=== PATIENT | male | born 1950 | race Hispanic/Latino ===

== ENCOUNTER 2019-12-21 | Observation (INO) | payer OTHER | END 2019-12-23 16:30 | disposition home or self-care (01) | PROVIDERS: ADMIT Surgery Plastic and Reconstructive Surgery ==

== ENCOUNTER 2024-02-27 20:39 | Observation (INO) | payer OTHER ==
[~2024-02-27] VITALS: Ht 167.6 cm; Wt 72.5 kg
[2024-02-27] MEDS: LACTATED RINGERS 1000ML 1,000 ML IV ONE (21:36)
[2024-02-27 21:52] LABS: BASOPHILS # (AUTO) 0.04 K/uL (0.00-0.20); BASOPHILS % (AUTO) 0.4 % (0.0-5.0); EOSINOPHILS # (AUTO) 0.35 K/uL (0.00-0.70); EOSINOPHILS % (AUTO) 3.4 % (0.0-8.0); HEMATOCRIT 41.8 % (42-54); IMMATURE GRANULOCYTE ABSOLUTE 0.05 K/uL (0-1); LYMPHOCYTES # (AUTO) 1.8 K/uL (1.0-4.8); LYMPHOCYTES % (AUTO) 17.6 % (21.0-51.0); MEAN CORPUSCULAR HEMOGLOBIN 32.7 pg (27.0-33.0); MEAN CORPUSCULAR VOLUME 96.3 fL (79-99); MONOCYTES # (AUTO) 1.3 K/uL (0.1-1.0); MONOCYTES % (AUTO) 12.2 % (3.0-13.0); NEUTROPHILS # (AUTO) 6.9 K/uL (1.8-7.7); NEUTROPHILS % (AUTO) 65.9 % (40.0-77.0); PLATELET COUNT (AUTO) 186 K/uL (130-400); RED BLOOD CELL COUNT(AUTO) 4.34 MIL/uL (4.50-6.20); RED CELL DISTRIBUTION WIDTH 13.2 % (11.0-15.5); WHITE BLOOD COUNT (AUTO) 10.4 K/uL (4.8-10.8)
[2024-02-27 22:05] LABS: CREATININE 1.9 mg/dL (0.5-1.3); INR 1.02 (0.85-1.15); POTASSIUM 4.1 mmol/L (3.5-5.1)
[2024-02-27 22:17] LABS: B-TYPE NATRIURETIC PEPTIDE 33 pg/mL (0-100)
[2024-02-27 22:33] LABS: APPEARANCE,URINE CLOUDY (CLEAR); BILIRUBIN,URINE NEGATIVE (NEGATIVE); COLOR,URINE YELLOW (YELLOW); GLUCOSE, URINE (UA) NEGATIVE (NEGATIVE); KETONES,URINE NEGATIVE (NEGATIVE); LEUKOCYTE ESTERASE ,URINE 250 Leu/uL (NEGATIVE); NITRATE,URINE NEGATIVE (NEGATIVE); OCCULT BLOOD,URINE NEGATIVE (NEGATIVE); PH,URINE 5.5 (5.0-8.0); PROTEIN,URINE 10 mg/dL (NEGATIVE); UROBILINOGEN,URINE 0.2 mg/dL (0.2-1.0)
[2024-02-27 22:34] LABS: ADD UA MICROSCOPIC YES
[2024-02-27 22:36] LABS: BACTERIA,URINE MOD /HPF (None Seen); MUCUS,URINE RARE LPF (None Seen); SQUAMOUS EPITHELIAL CELL,UR RARE /HPF (0-2); WBC,URINE 26-50 /HPF (0-1)
[2024-02-27] MEDS ORDERED: hydrALAZine 20MG/ML VIAL IV PRN (23:00)
[2024-02-27] MEDS ORDERED: acetaMINOPHEN 325 MG TAB PO PRN (23:00)
[2024-02-27] MEDS ORDERED: acetaMINOPHEN 650 MG SUPPOSITORY RC PRN (23:00)
[2024-02-27] MEDS ORDERED: doCUSate SODIUM 100 MG CAP PO PRN (23:00)
[2024-02-27] MEDS ORDERED: TEMAZEPAM 15 MG CAPSULE PO PRN (23:00)
[2024-02-27] MEDS ORDERED: LACTULOSE 20 GM/30 ML UDCUP PO PRN (23:00)
[2024-02-27] MEDS ORDERED: ONDANSETRON 4MG INJ IVP PRN (23:00)
[2024-02-28] VITALS (7 sets, daily range): BP systolic 103–154; BP diastolic 50–67; PULSE 61–90; RESP 18–20; TEMP 98.2–98.7; O2SAT 96–98
[2024-02-28] MEDS: 0.9%NACL 1000ML 1,000 ML IV SCH (00:05)
[2024-02-28] MEDS: CEFTRIAXONE 2GM VIAL IVPB SCH (00:05)
[2024-02-28] MEDS ORDERED: ATOR40TA71 PO (00:14)
[2024-02-28] MEDS ORDERED: LISI10TA24 PO (00:14)
[2024-02-28 01:19] LABS: SARS-CoV-2, RNA, NAAT NEGATIVE SARS CoV-2 (NEGATIVE)
[2024-02-28 01:26] LABS: INFLUENZA TYPE A Negative For Type A (NEGATIVE); INFLUENZA TYPE B Negative For Type B (NEGATIVE)
[2024-02-28 06:43] LABS: MEAN CORPUSCULAR HEMOGLOBIN 32.9 pg (27.0-33.0); MEAN CORPUSCULAR HGB CONC 33.9 g/dL (32.0-36.0); MEAN CORPUSCULAR VOLUME 96.9 fL (79-99); RED BLOOD CELL COUNT(AUTO) 4.23 MIL/uL (4.50-6.20); RED CELL DISTRIBUTION WIDTH 13.3 % (11.0-15.5); WHITE BLOOD COUNT (AUTO) 8.3 K/uL (4.8-10.8)
[2024-02-28 06:54] LABS: HEMOGLOBIN A1C 5.8 % (4.0-6.0)
[2024-02-28 07:13] LABS: CREATININE 1.4 mg/dL (0.5-1.3); MAGNESIUM 2.1 mg/dL (1.80-2.40); PHOSPHORUS 4.1 mg/dL (2.5-4.9); POTASSIUM 4.7 mmol/L (3.5-5.1); THYROID STIMULATING HORMONE 0.58 uIU/mL (0.36-3.74)
[2024-02-28] MEDS: INSULIN humuLIN R 100 UNIT/ML 3ML SQ SCH (07:22)
[2024-02-28] MEDS ORDERED: ENOXAPARIN SODIUM 30 MG/0.3 ML SQ SCH (09:00)
[2024-02-28] MEDS ORDERED: LEVO750T68 PO (16:16)
== END 2024-02-28 17:21 | disposition home or self-care (01) ==
LOC: EDH 20:39 → INTOOBSV 23:09 → EDHIP 23:09 → 4AH 02-28 00:42
PROVIDERS: ADMIT Internal Medicine Critical Care Medicine; ATTEND Internal Medicine Critical Care Medicine
DX: I95.9 Hypotension, unspecified (principal); N39.0 Urinary tract infection, site not specified; N17.9 Acute kidney failure, unspecified; I10 Essential (primary) hypertension; E86.0 Dehydration; E78.00 Pure hypercholesterolemia, unspecified; Z20.822 Contact with and (suspected) exposure to COVID-19; Z79.899 Other long term (current) drug therapy; Z98.890 Other specified postprocedural states
CPT/HCPCS: 99285; 82550; 84484 ×2; 80048 ×2; 83880; 85025; 85610; 87086; 81001; 36415 ×2; 71045; 93005; 96365; 83036; 84443; 83735; 84100; 85027; 87804 ×2; 82948 ×2; 87635; J7120; G0378 ×14; J7030; J0696